=== PATIENT | female | born 1985 | race Two or more races ===

== ENCOUNTER 2024-04-10 15:59 | Outpatient (CLI) | payer OTHER ==
[~2024-04-10 15:59] MED LIST: LEVOTHYROXINE25 MCG PO
[2024-04-10 16:12] VITALS: BP 144/72
== END 2024-04-10 16:51 | disposition home or self-care (01) ==
LOC: NST 15:59
PROVIDERS: ATTEND Obstetrics & Gynecology
DX: Z34.83 Encounter for supervision of other normal pregnancy, third trimester (principal)

== ENCOUNTER 2024-04-18 13:00 | Inpatient (IN) | payer OTHER ==
[~2024-04-18] VITALS: Ht 157.5 cm; Wt 93.9 kg
[2024-04-18 13:36] VITALS: BP 137/82; BP 137/85
[2024-04-18] MEDS ORDERED: RINGERS SOLUTION,LACTATED 1,000 ML IV SCH (14:15)
[2024-04-18] MEDS ORDERED: CITRIC ACID/SODIUM CITRATE 30 ML BLIST.PACK PO SCH (14:15)
[2024-04-18] MEDS ORDERED: CEFAZOLIN SODIUM 1,000 MG VIAL IV SCH (14:15)
[2024-04-18 14:17] LABS: PH,URINE 6.5 (5.0-8.0); URINE APPEARANCE Clear; URINE BILIRRUBIN Negative (NEGATIVE); URINE BLOOD Negative; URINE COLOR Yellow; URINE GLUCOSE Negative (NEGATIVE); URINE KETONE Negative (NEGATIVE); URINE LEUKOCYTE Negative; URINE NITRATE Negative; URINE PROTEIN Negative (NEGATIVE)
[2024-04-18 14:19] LABS: HEMATOCRIT 33.4 % (36.0-45.00); HEMOGLOBIN 10.7 g/dL (12.0-15.00); MEAN CELL VOLUME 83.8 fL (80.00-100.00); MEAN CORPUSCULAR HEMOGLOBIN 26.9 pg (27.00-32.0); MEAN CORPUSCULAR HGB CONC 32.1 g/dl (32.0-36.0); PLATELET COUNT 362 K/uL (150-450); RED BLOOD COUNT 3.98 M/uL (4.00-6.00); RED CELL DISTRIBUTION WIDTH 14.1 % (11.5-14.5)
[2024-04-18 14:20] LABS: URINE BACTERIA 310.8 uL (0.0-1933); URINE EPITHELIAL CELLS 5.6 uL (0.0-38.8); URINE WBC 3.1 uL (0.0-23.2)
[2024-04-18] MEDS ORDERED: FOLIC ACID20 MG PO (14:21)
[2024-04-18 14:32] LABS: URINE RBC 1.6 uL (0.0-20.8)
[2024-04-18 14:45] LABS: PROTHROMBIN TIME 10.9 SECONDS (9.0-11.5)
[2024-04-18 15:10] VITALS: BP 147/83
[2024-04-18 15:19] LABS: ALBUMIN 2.5 gm/dL (3.4-5.0); BILIRUBIN TOTAL 0.76 mg/dL (0.3-1.2); CALCIUM 9.4 mg/dL (8.5-10.1); CREATININE SERUM 0.58 mg/dL (0.55-1.02); GFR 116.98; GLOBULINA 3.8 G/DL (2.4-3.5); POTASSIUM 3.8 mEq/L (3.5-5.1); TOTAL PROTEIN 6.3 gm/dL (6.4-8.2)
[2024-04-18 15:28] LABS: MYCOPLASMA PNEUMONIAE IGM NON REACTIVE (NO REACTIVE)
[2024-04-18] MEDS ORDERED: METHYLERGONOVINE MALEATE 0.2 MG/ML AMPUL ONE (16:12)
[2024-04-18] MEDS ORDERED: METHYLERGONOVINE MALEATE 0.2 MG/ML AMPUL IV ONE (17:15)
[2024-04-18] MEDS ORDERED: OXYTOCIN 10 UNITS/ML VIAL IV ONE (17:15)
[2024-04-18] MEDS ORDERED: ERYTHROMYCIN BASE OPHT 1GM EACH TUBE OP ONE (17:30)
[2024-04-18] MEDS ORDERED: MORPHINE SULFATE 4 MG/ML VIAL IV ONE (19:55)
[2024-04-18] MEDS ORDERED: OXYTOCIN 10 UNITS/ML VIAL ONE (20:51)
[2024-04-18 21:19] VITALS: BP 135/77
[2024-04-18 21:51] LABS: HEMATOCRIT 33.6 % (36.0-45.00); MEAN CELL VOLUME 82.4 fL (80.00-100.00); MEAN CORPUSCULAR HGB CONC 32.8 g/dl (32.0-36.0); PLATELET COUNT 339 K/uL (150-450); RED BLOOD COUNT 4.08 M/uL (4.00-6.00)
[2024-04-18] MEDS ORDERED: PROMETHAZINE HCL 25 MG/ML AMPUL IM PRN (23:15)
[2024-04-18] MEDS ORDERED: KETOROLAC TROMETHAMINE 10 MG TABLET PO PRN (23:15)
[2024-04-18] MEDS ORDERED: LABETALOL HCL 200 MG TABLET PO PRN (23:15)
[2024-04-18] MEDS ORDERED: MEPERIDINE HCL/PF 50 MG/ML VIAL IM PRN (23:15)
[2024-04-18] MEDS ORDERED: CEFAZOLIN SODIUM 1,000 MG VIAL IV ONE (23:15)
[2024-04-18] MEDS ORDERED: MAGNESIUM SULFATE IN WATER 500 ML IV SCH (23:15)
[2024-04-19 01:08] VITALS: BP 143/90
[2024-04-19 05:29] VITALS: BP 140/70
[2024-04-19] MEDS ORDERED: LEVOTHYROXINE SODIUM 75 MCG TABLET PO SCH (06:00)
[2024-04-19 08:00] VITALS: BP 134/79
[2024-04-19 08:53] LABS: HEMATOCRIT 33.2 % (36.0-45.00); HEMOGLOBIN 10.7 g/dL (12.0-15.00); MEAN CORPUSCULAR HEMOGLOBIN 27.2 pg (27.00-32.0); MEAN CORPUSCULAR HGB CONC 32.4 g/dl (32.0-36.0); PLATELET COUNT 334 K/uL (150-450); RED BLOOD COUNT 3.95 M/uL (4.00-6.00); RED CELL DISTRIBUTION WIDTH 14.3 % (11.5-14.5)
[2024-04-19] MEDS ORDERED: OxyCODONE HCL/APAP UD (PERCOCET) PO SCH (13:00)
[2024-04-19 14:25] LABS: RH POSITIVE
[2024-04-19 16:00] VITALS: BP 149/83
[2024-04-19 20:00] VITALS: BP 123/76
[2024-04-20] VITALS (11 sets, daily range): BP systolic 121–170; BP diastolic 78–93; O2SAT 99–100
[2024-04-20] MEDS ORDERED: LABETALOL HCL 200 MG TABLET PO STA (13:13)
== END 2024-04-21 13:58 | disposition home or self-care (01) | DRG 788 ==
LOC: OB/GYN 13:25 → LDR 13:25 → O/R 16:09 → OB/GYN 17:38
PROVIDERS: Obstetrics & Gynecology Maternal & Fetal Medicine; ADMIT Obstetrics & Gynecology Gynecology; ATTEND Obstetrics & Gynecology Gynecology
PROC: 4A1HXCZ Monitoring of Products of Conception, Cardiac Rate, External Approach (ICD-10-PCS; 2024-04-18)
PROC: 10D00Z1 Extraction of Products of Conception, Low, Open Approach (ICD-10-PCS; principal; 2024-04-18 15:30)
DX: O13.4 Gestational [pregnancy-induced] hypertension without significant proteinuria, complicating childbirth (principal); Z3A.37 37 weeks gestation of pregnancy; Z37.0 Single live birth; Z20.822 Contact with and (suspected) exposure to COVID-19